=== PATIENT | female | born 1955 | race Two or more races ===

== ENCOUNTER → 2022-04-16 08:41 | Outpatient (BNVA) | payer OTHER, SELFPAY | PROVIDERS: PCP Internal Medicine; Visit Provider Nurse Practitioner Family | DX: G43.009 Migraine without aura, not intractable, without status migrainosus (principal); M54.2 Cervicalgia; E78.5 Hyperlipidemia, unspecified; I10 Essential (primary) hypertension; Z79.899 Other long term (current) drug therapy | CPT/HCPCS: 99202 ==

== ENCOUNTER 2022-05-06 18:39 | Outpatient (REF) | payer OTHER, SELFPAY | END 2022-05-06 18:40 | disposition home or self-care (01) | LOC: HO.MRI 18:39 | PROVIDERS: Visit Provider Nurse Practitioner Family | DX: G43.009 Migraine without aura, not intractable, without status migrainosus (principal); E78.5 Hyperlipidemia, unspecified; I10 Essential (primary) hypertension | CPT/HCPCS: 70551 ==

== ENCOUNTER → 2022-07-04 13:34 | Outpatient (BNVA) | payer OTHER, SELFPAY | PROVIDERS: PCP Internal Medicine; Visit Provider Nurse Practitioner Family | DX: G43.009 Migraine without aura, not intractable, without status migrainosus (principal); M54.2 Cervicalgia; Z79.899 Other long term (current) drug therapy | CPT/HCPCS: 99212 ==